=== PATIENT | male | born 1935 | race Caucasian/White ===

== ENCOUNTER → 2017-12-09 | Outpatient (CLI) | payer MEDICARE, BC ==
[~2017-12-09] MED LIST: AMBI10TA PO; BYST5TAB2 PO; CEPH500C3 PO; COLE625 PO; GLUCTAB PO; LASI20TA PO; NAPR220T95 PO; NORC7.5T PO; RAMI2.5C29 PO; SPIR25TA PO
[2017-12-09 12:46] LABS: BICARBONATE 31.5 MEQ/L (21.0-32.0); CALCIUM 9.3 MG/DL (8.5-10.1); CREATININE 1.27 MG/DL (0.60-1.30)
== END ==
LOC: CLAB 12:00
PROVIDERS: ATTEND Internal Medicine
DX: I50.9 Heart failure, unspecified (principal); Z79.899 Other long term (current) drug therapy
CPT/HCPCS: 36415; 80048

== ENCOUNTER → 2017-12-21 | Outpatient (CLI) | payer MEDICARE, BC ==
[2017-12-21 11:10] LABS: BICARBONATE 32.5 MEQ/L (21.0-32.0); CALCIUM 9.3 MG/DL (8.5-10.1); CREATININE 1.25 MG/DL (0.60-1.30)
== END ==
LOC: CLAB 09:40
PROVIDERS: ATTEND Internal Medicine Cardiovascular Disease
DX: Z79.899 Other long term (current) drug therapy (principal)
CPT/HCPCS: 36415; 80048

== ENCOUNTER → 2018-01-11 | Outpatient (CLI) | payer MEDICARE, BC ==
[2018-01-11 10:18] LABS: BICARBONATE 34.4 MEQ/L (21.0-32.0); CREATININE 1.15 MG/DL (0.60-1.30)
== END ==
LOC: CLAB 08:44
PROVIDERS: ATTEND Internal Medicine Interventional Cardiology
DX: I50.9 Heart failure, unspecified (principal); N18.9 Chronic kidney disease, unspecified
CPT/HCPCS: 36415; 80048